=== PATIENT | female | born 1960 | race Caucasian/White ===

== ENCOUNTER 2016-12-11 06:11 | Inpatient (IN) | payer OTHER ==
[2016-12-11] VITALS (35 sets, daily range): BP systolic 94–147; BP diastolic 50–92; PULSE 66–97; RESP 16–23; Ht 165.1 cm; Wt 96.4 kg
[~2016-12-11] VITALS: Ht 165.1 cm; Wt 96.4 kg
[~2016-12-11 06:11] MED LIST: BUPIVACAINE 0.25% (MPF) 30 ML INJ INJ ONE; CLINDAMYCIN 600 MG/D5W (PMX) 50 ML IVPB ONE; POLYMYXIN/BACITRACIN 1L IRRIG IRR ONE; SOD CHLORIDE 0.9% 1,000 ML IV ONE
[2016-12-11] MEDS ORDERED: METH10TA5 PO (06:36)
[2016-12-11] MEDS ORDERED: LIDOCAINE 2% (SDV) 5 ML INJ ONE (07:34)
[2016-12-11] MEDS ORDERED: SUCCINYLCHOLINE CHLORIDE 100 MG/5 ML SYG IV ONE (07:34)
[2016-12-11] MEDS ORDERED: NEOSTIGMINE 3 MG/3 ML SYRINGE ONE ×2 (07:34→10:16)
[2016-12-11] MEDS ORDERED: GLYCOPYRROLATE 0.4 MG INJ ONE ×2 (07:34→10:11)
[2016-12-11] MEDS ORDERED: PROPOFOL 20 ML ONE (07:34)
[2016-12-11] MEDS ORDERED: MEPERIDINE 100 MG INJ ONE (07:34)
[2016-12-11] MEDS ORDERED: ROCURONIUM 50 MG INJ ONE ×2 (07:34→08:31)
--- NOTE | 2016-12-11 08:18 | RADRPT ---
PROCEDURE: XR Chest 1 View. CLINICAL INDICATION: Abnormal breath sounds, preop. TECHNIQUE: AP view of the chest were obtained. COMPARISON: None. FINDINGS: The heart size is within normal limits. Calcified atherosclerosis is noted in the aorta. Subsegment al atelectasis is noted at the lung bases. Osseous structures are intact. IMPRESSION: Calcified atherosclerosis in the aorta. Subsegmental atelectasis at the lung bases. RPTAT: AA .Conor Valenzuela MD, Date Time Electronically viewed and signed by .Conor Valenzuela MD, on 12/11/2016 08:18 .P/
[2016-12-11] MEDS ORDERED: LABETALOL HCL 20MG INJ IV PRN (09:30)
[2016-12-11] MEDS ORDERED: morphine (1 MG/ML) 10ML SYRINGE IV PRN ×2 (09:30)
[2016-12-11] MEDS ORDERED: ONDANSETRON 4 MG INJ IV PRN ×2 (09:30→17:00)
[2016-12-11] MEDS ORDERED: MEPERIDINE 25 MG INJ IV PRN (09:30)
[2016-12-11] MEDS ORDERED: FENTAnyl 50 MCG/ML VIAL IV PRN ×2 (09:30)
[2016-12-11] MEDS ORDERED: HYDROmorphONE (0.2 MG/ML) 10ML SYG IV PRN ×2 (09:30)
[2016-12-11] MEDS ORDERED: METOCLOPRAMIDE 10 MG INJ IV PRN (09:30)
[2016-12-11] MEDS ORDERED: DIPHENHYDRAMINE 50 MG INJ IV PRN (09:30)
[2016-12-11] MEDS ORDERED: MIDAZOLAM 1 MG/ML 2 ML INJ IV PRN (09:30)
[2016-12-11] MEDS ORDERED: EPHEDrine SULFATE 50 MG/5 ML SYG IV PRN (09:30)
[2016-12-11] MEDS ORDERED: hydrALAzine 20 MG INJ IV PRN (09:30)
[2016-12-11] MEDS ORDERED: ONDANSETRON 4 MG INJ ONE (10:11)
[2016-12-11] MEDS ORDERED: METOCLOPRAMIDE 10 MG INJ ONE (10:11)
--- NOTE | 2016-12-11 11:42 | OPR ---
DATE OF OPERATION: 12/11/2016 INDICATION: This is a 56-year-old female with a hiatal hernia and recalcitrant GERD, not amenable t o PPI therapy. Additionally, the patient does not want to take any more medications as symptom cont rol. She requests surgical repair. Risks, alternatives, benefits, and personnel were discussed wit h patient. Patient expressed understanding and consents to operation. PREOPERATIVE DIAGNOSES: 1. Hiatal hernia. 2. Recalcitrant GERD. POSTOPERATIVE DIAGNOSIS: 1. Hiatal hernia. 2. Recalcitrant GERD. OPERATION PERFORMED: 1. Laparoscopic Una fundoplication. 2. Laparoscopic hiatal hernia repair with a 6-layer ACell mesh. SURGEON: Max Davis MD SPECIMENS: None. COMPLICATIONS: None. ANESTHESIA: General. DESCRIPTION OF PROCEDURE: The patient was taken to the OR and prepped and draped in the usual steri le fashion. Surgical timeout was performed. IV antibiotics were given. Transverse incision is mad e over the left upper periumbilical region with a 15 blade, using a 10 mm optical trocar, optical en try was performed. Pneumoperitoneum was established. Right subcostal midclavicular 5 mm port was i nserted under direct visualization. Left midclavicular subcostal 12 mm port was inserted under dire ct visualization. Left upper flank 5 mm port was inserted under direct visualization. Midepigastri c transverse 5 mm incision was made. Placement of the snake liver retractor is performed with good liver retraction. Upon initial inspection, there was a hiatal hernia. The division of the pars flaccida was performed and the laparoscopic Harmonic dissection to the right crura was performed. The peritoneum of the r ight crura was divided and the esophagus and right crura are divided, the posterior plane is develop ed. Anteriorly, the peritoneum of the esophagus was also divided using laparoscopic Harmonic. The short gastrics were divided, thus mobilizing the fundus with laparoscopic Harmonic. The left crura was then identified. The peritoneum of the left crura was divided allowing mobilization of the esop hagus. A Davis is placed around the esophagus loosely and secured in place with a Vicryl Endoloop . A 46 bougie it is advanced into the stomach. A 3-0 silk was placed into the posterior fundus. The hiatal hernia was then repaired with interrupted #2 Ethibond in a posterior approach with laparo scopic techniques. The posterior fundus was retracted posteriorly to the esophagus and shoeshine ma neuver was performed and there was free mobilization of the fundus without any kind of tension or re traction. A 3-0 Prolene was used to secure the fundus to the esophagus in interrupted fashion with a posterior wrap. 1 cm above and below this initial Prolene, 3-0 silks were used to secure the wrap . This makes the wrap approximately 2 to 3 cm in length. There was good hemostasis. The bougie wa s removed. [place] was then removed. Anteriorly the 6-layer ACell was then secured in place with i nterrupted #2-0 Ethibond to the right and left crura to support the hernia repair. There was good hemostasis. The liver retractor was removed, ports removed under direct visualization. Skin was cl osed using skin jaylen. Local anesthesia was injected. Dry dressings were applied. Dictated By: MAX ROMAN/TIM Conf#: [id number] DID#: [id number]
[2016-12-11 11:48] LABS: ALBUMIN 3.3 g/dl (3.3-4.9)
[2016-12-11 11:49] LABS: BASOPHILS % 0.2 % (0.0-2.0); EOSINOPHILS % 0.4 % (0.0-7.0); HEMATOCRIT 39.6 % (37.0-47.0); HEMOGLOBIN 13.3 g/dl (12.0-16.0); LYMPHOCYTES # 2.6 10^3/ul (0.8-2.9); LYMPHOCYTES % 25.6 % (15.0-51.0); MEAN CORPUSCULAR HEMOGLOBIN 27.9 pg (29.0-33.0); MEAN CORPUSCULAR HGB CONC 33.5 g/dl (32.0-37.0); MEAN CORPUSCULAR VOLUME 83.3 fl (82.0-101.0); MEAN PLATELET VOLUME 8.9 fl (7.4-10.4); MONOCYTE # 0.3 10^3/ul (0.3-0.9); MONOCYTES % 2.7 % (0.0-11.0); NEUTROPHIL # 7.3 10^3/ul (1.6-7.5); NEUTROPHILS % 71.1 % (39.0-77.0); PLATELET COUNT 232 10^3/UL (140-440); RED BLOOD COUNT 4.75 10^6/ul (4.20-5.40); RED CELL DISTRIBUTION WIDTH 13.9 % (11.5-14.5); UNCORRECTED WBC 10.2 10^3/ul (4.8-10.8); WHITE BLOOD COUNT 10.2 10^3/ul (4.8-10.8)
[2016-12-11 11:50] LABS: POTASSIUM 4.4 mmol/L (3.5-5.1)
[2016-12-11 11:51] LABS: ALBUMIN/GLOBULIN RATIO 1.26; BILIRUBIN,INDIRECT 0.1 mg/dl (0-1.1); BILIRUBIN,TOTAL 0.1 mg/dl (0.2-1.3); TOTAL PROTEIN 5.9 g/dl (6.1-8.1)
[2016-12-11] MEDS: CLINDAMYCIN 600 MG/D5W (PMX) 50 ML IVPB SCH ×3 (12:00→23:19)
[2016-12-11 12:02] LABS: CREATININE 0.62 mg/dl (0.44-1.00)
[2016-12-11 12:03] LABS: CONDITION 1
[2016-12-11] MEDS: morphine 2 MG INJ IV PRN ×3 (12:57→21:51)
[2016-12-11] MEDS: LACTATED RINGER'S 1,000 ML IV SCH ×2 (12:57→21:51)
--- NOTE | 2016-12-11 14:58 | HP ---
DATE OF ADMISSION: 12/11/2016 HISTORY OF PRESENT ILLNESS: The patient is a 56-year-old female with history of hyperparathyroidism and chronic back pain. The patient was diagnosed with dyspepsia, hiatal hernia, and recurrent GERD , not responding to PPI therapy. The patient was evaluated by Dr. Davis in surgical consultation. Th e patient was brought to the hospital and underwent a laparoscopic Calvin fundoplication and laparos copic hiatal hernia repair. Post surgery, the patient experienced some significant postoperative pa in, and the patient is admitted for further evaluation and management. PAST MEDICAL HISTORY: Hyperthyroidism, the patient takes methimazole, and chronic back pain with hi story of steroid injections. Currently, patient is undergoing physical therapy. PAST SURGICAL HISTORY: The patient denies having any surgeries in the past. FAMILY HISTORY: Noncontributory. SOCIAL HISTORY: The patient lives at home. The patient denies any tobacco use. Denies any illicit drug use, denies any alcohol use. ALLERGIES: THE PATIENT IS ALLERGIC TO PENICILLIN ANTIBIOTICS. HOME MEDICATIONS: Methimazole 30 mg p.o. daily. REVIEW OF SYSTEMS: A 12-point review of systems is negative unless what is mentioned in the HPI. PHYSICAL EXAMINATION: GENERAL: Well-developed, obese female, currently is lethargic, but easily arousable, alert and orie nted x4. VITAL SIGNS: Temperature is 98.2, pulse is 68, blood pressure 123/80, respiratory rate 18, oxygen s aturation 96% on 2 L nasal. HEENT: Head is atraumatic, normocephalic. Pupils equal, round, reactive to light and accommodation . Oral mucosa is pink and moist. NECK: Supple, no cervical lymphadenopathy, no thyromegaly. CHEST: Lungs clear bilaterally. There is no rhonchi, wheezes, rales noted. CARDIOVASCULAR: Normal S1, S2. No murmurs, gallops, clicks, rubs noted. ABDOMEN: Protuberant, soft, nondistended. Patient is status post surgery with laparoscopic incisio ns intact. EXTREMITIES: No edema, clubbing, cyanosis. Pulses equal bilaterally 2+. SKIN: There is no rash, petechiae noted. NEUROLOGIC: Patient is awake, alert, and oriented x4. No focal deficits noted. Motor strength is 5/5 in all extremities. LABORATORY DATA: On admission, CBC: White blood cells 10.2, hemoglobin 13.3, hematocrit 39.6, plat elets 232. Chemistry: Sodium is 144, potassium 4.4, chloride 107, carbon dioxide 26, anion gap 15, BUN is 12, creatinine 0.62, glucose 160. AST is 117, ALT is 122, alkaline phosphatase is 87. IMAGING: Chest x-ray with calcified atherosclerosis in the aorta, subsegmental atelectasis at the l ton bases. ASSESSMENT AND PLAN: 1. Hiatal hernia and recurrent esophagitis. Status post laparoscopic Calvin fundoplication and hia marisa hernia repair by Dr. Davis. Continue morphine for pain and Zofran p.r.n. for nausea. We are dominic g to continue IV fluids, advance diet per surgical recommendations, continue incentive spirometer q. 1 hour while patient is awake. 2. Hyperthyroidism. Continue patient on methimazole. We will obtain CBC and CMP tomorrow. Contin ue sequential compression devices for deep venous thrombosis prophylaxis. Further recommendations based on clinical course. Plan of care discussed with Dr. Nuno. Dictated By: SHANI PARKER EXPANDER MACHINE OPERATOR for CHIKIS NUNO MD SR/NTS Conf#: [id number] DID#: [id number]
[2016-12-12 00:08] VITALS: BP 120/73; RESP 20
[2016-12-12] MEDS: morphine 2 MG INJ IV PRN (02:41)
[2016-12-12] MEDS: CLINDAMYCIN 600 MG/D5W (PMX) 50 ML IVPB SCH (05:15)
[2016-12-12] MEDS: LACTATED RINGER'S 1,000 ML IV SCH ×3 (05:16→17:57)
[2016-12-12 05:52] LABS: BASOPHILS % 0.3 % (0.0-2.0); EOSINOPHILS % 0.1 % (0.0-7.0); HEMATOCRIT 37.9 % (37.0-47.0); HEMOGLOBIN 12.9 g/dl (12.0-16.0); LYMPHOCYTES # 2.3 10^3/ul (0.8-2.9); LYMPHOCYTES % 24.5 % (15.0-51.0); MEAN CORPUSCULAR HEMOGLOBIN 28.1 pg (29.0-33.0); MEAN CORPUSCULAR VOLUME 82.8 fl (82.0-101.0); MEAN PLATELET VOLUME 9.3 fl (7.4-10.4); MONOCYTE # 0.6 10^3/ul (0.3-0.9); MONOCYTES % 6.2 % (0.0-11.0); NEUTROPHIL # 6.5 10^3/ul (1.6-7.5); NEUTROPHILS % 68.9 % (39.0-77.0); PLATELET COUNT 207 10^3/UL (140-440); RED BLOOD COUNT 4.58 10^6/ul (4.20-5.40); RED CELL DISTRIBUTION WIDTH 13.9 % (11.5-14.5); UNCORRECTED WBC 9.5 10^3/ul (4.8-10.8); WHITE BLOOD COUNT 9.5 10^3/ul (4.8-10.8)
[2016-12-12 05:56] LABS: ALBUMIN 3.2 g/dl (3.3-4.9)
[2016-12-12 05:57] LABS: POTASSIUM 4.1 mmol/L (3.5-5.1)
[2016-12-12 05:59] LABS: ALBUMIN/GLOBULIN RATIO 1.06; BILIRUBIN,INDIRECT 0.4 mg/dl (0-1.1); BILIRUBIN,TOTAL 0.4 mg/dl (0.2-1.3); CREATININE 0.52 mg/dl (0.44-1.00); TOTAL PROTEIN 6.2 g/dl (6.1-8.1)
[2016-12-12 06:00] LABS: CALCIUM 7.9 mg/dl (8.4-10.2)
[2016-12-12 06:56] LABS: CONDITION 1
[2016-12-12 08:29] VITALS: BP 121/74; RESP 18
[2016-12-12] MEDS: METHIMAZOLE 5 MG TAB PO SCH (09:00)
--- NOTE | 2016-12-12 13:27 | PN ---
Date/Time of Note Date/Time of Note DATE: 12/12/16 TIME: 13:25 Assessment/Plan VTE Prophylaxis VTE Prophylaxis Intervention: SCD's Lines/Catheters IV Catheter Type (from Nrsg): Peripheral IV Assessment/Plan Chief Complaint/Hosp Course ASSESSMENT AND PLAN: 1. Hiatal hernia and recurrent esophagitis. Status post laparoscopic Calvin fundoplication and hiatal hernia repair by Dr. Davis. Continue morphine for pain and Zofran p.r.n. for nausea. Advance diet per surgical recommendations, continue incentive spirometer q.1 hour while patient is awake. 2. Hyperthyroidism. Continue patient on methimazole. Continue sequential compression devices for deep venous thrombosis prophylaxis. Further recommendations based on clinical course. Plan of care discussed with Dr. Nuno. Problems: Subjective 24 Hr Interval Summary Free Text/Dictation Patient tolerates clear liquid diet well, pain is well controlled, complains of diaphragmatic pain. Exam/Review of Systems Vital Signs Vitals Vital Signs Date Time Temp Pulse Resp B/P Pulse Ox O2 Delivery O2 Flow Rate FiO2 12/12/16 08:29 98.3 101 18 121/74 93 12/11/16 18:00 Nasal Cannula 2.0 Intake and Output 12/11/16 12/11/16 12/12/16 15:00 23:00 07:00 Intake Total 400 ml 1200 ml Output Total 850 ml 1600 ml Balance -450 ml -400 ml Exam GENERAL: Well-developed, obese female, currently is lethargic, but easily arousable, alert and oriented x4. HEENT: Head is atraumatic, normocephalic. NECK: Supple, no cervical lymphadenopathy, no thyromegaly. CHEST: Lungs clear bilaterally. There is no rhonchi, wheezes, rales noted. CARDIOVASCULAR: Normal S1, S2. No murmurs, gallops, clicks, rubs noted. ABDOMEN: Protuberant, soft, nondistended. Patient is status post surgery with laparoscopic incisions intact. EXTREMITIES: No edema, clubbing, cyanosis. Pulses equal bilaterally 2+. SKIN: There is no rash, petechiae noted. NEUROLOGIC: Patient is awake, alert, and oriented x4. Results Result Diagram: 12/12/16 0420 12/12/16 0420 Results 24 hrs Laboratory Tests Test 12/12/16 04:20 Alanine Aminotransferase (ALT/SGPT) 378 H Albumin 3.2 L Albumin/Globulin Ratio 1.06 Alkaline Phosphatase 90 Anion Gap 12 Aspartate Amino Transf (AST/SGOT) 470 H Basophils # 0.0 Basophils % 0.3 Blood Morphology Comment Blood Urea Nitrogen 7 Calcium Level 7.9 L Carbon Dioxide Level 28 Chloride Level 103 Creatinine 0.52 Direct Bilirubin 0.00 Eosinophils # 0.0 Eosinophils % 0.1 Globulin 3.00 Glucose Level 103 # Hematocrit 37.9 Hemoglobin 12.9 Indirect Bilirubin 0.4 Lymphocytes # 2.3 Lymphocytes % 24.5 Mean Corpuscular Hemoglobin 28.1 L Mean Corpuscular Hemoglobin Concent 34.0 Mean Corpuscular Volume 82.8 Mean Platelet Volume 9.3 Monocytes # 0.6 Monocytes % 6.2 Neutrophils # 6.5 Neutrophils % 68.9 Nucleated Red Blood Cells # 0.0 Nucleated Red Blood Cells % 0.0 Platelet Count 207 Potassium Level 4.1 Red Blood Count 4.58 Red Cell Distribution Width 13.9 Sodium Level 139 Total Bilirubin 0.4 Total Protein 6.2 White Blood Count 9.5 Medications Medications Current Medications Morphine Sulfate 2 mg 2 mg Q2H PRN IV PAIN LEVEL 6-10 Last administered on 02:41; Admin Dose 2 MG; Start 12/11/16 at 11:00 Lactated Ringer's (Lr) 1,000 ml @ 100 mls/hr Q10H IV Last administered on 05:16; Admin Dose 100 MLS/HR; Start 12/11/16 at 10:38 Methimazole (Tapazole) 30 mg DAILY PO ; Start 12/12/16 at 09:00 Ondansetron HCl (Zofran Inj) 4 mg Q4H PRN IV NAUSEA AND/OR VOMITING; Start 12/11 at 17:00 SHANI PARKER Dec 12, 2016 13:27
[2016-12-12] MEDS ORDERED: HYDROCODONE/APAP (5/325) TAB NGT PRN (13:30)
[2016-12-12] MEDS ORDERED: HYDROCODONE/APAP (5/325) TAB PO PRN (13:30)
--- NOTE | 2016-12-12 17:22 | PN ---
Date/Time of Note Date/Time of Note DATE: 12/12/16 TIME: 17:21 Assessment/Plan VTE Prophylaxis VTE Prophylaxis Intervention: heparin, SCD's Lines/Catheters IV Catheter Type (from Nrs): Peripheral IV Urinary Cath still in place: No Assessment/Plan Chief Complaint/Hosp Course s/p lap bryson and lap hiatal hernia repair with mesh Problems: Assessment/Plan dc tomorrow Subjective 24 Hr Interval Summary Free Text/Dictation no issues, tolerating clears Exam/Review of Systems Vital Signs Vitals Vital Signs Date Time Temp Pulse Resp B/P Pulse Ox O2 Delivery O2 Flow Rate FiO2 12/12/16 08:29 98.3 101 18 121/74 93 12/11/16 18:00 Nasal Cannula 2.0 Intake and Output 12/11/16 12/11/16 12/12/16 14:59 22:59 06:59 Intake Total 400 ml 1200 ml Output Total 850 ml 1600 ml Balance -450 ml -400 ml Exam clean dry intact Results Result Diagram: 12/12/16 0420 12/12/16 0420 Results 24 hrs Laboratory Tests Test 12/12/16 04:20 Alanine Aminotransferase (ALT/SGPT) 378 H Albumin 3.2 L Albumin/Globulin Ratio 1.06 Alkaline Phosphatase 90 Anion Gap 12 Aspartate Amino Transf (AST/SGOT) 470 H Basophils # 0.0 Basophils % 0.3 Blood Morphology Comment Blood Urea Nitrogen 7 Calcium Level 7.9 L Carbon Dioxide Level 28 Chloride Level 103 Creatinine 0.52 Direct Bilirubin 0.00 Eosinophils # 0.0 Eosinophils % 0.1 Globulin 3.00 Glucose Level 103 # Hematocrit 37.9 Hemoglobin 12.9 Indirect Bilirubin 0.4 Lymphocytes # 2.3 Lymphocytes % 24.5 Mean Corpuscular Hemoglobin 28.1 L Mean Corpuscular Hemoglobin Concent 34.0 Mean Corpuscular Volume 82.8 Mean Platelet Volume 9.3 Monocytes # 0.6 Monocytes % 6.2 Neutrophils # 6.5 Neutrophils % 68.9 Nucleated Red Blood Cells # 0.0 Nucleated Red Blood Cells % 0.0 Platelet Count 207 Potassium Level 4.1 Red Blood Count 4.58 Red Cell Distribution Width 13.9 Sodium Level 139 Total Bilirubin 0.4 Total Protein 6.2 White Blood Count 9.5 Medications Medications Current Medications Morphine Sulfate 2 mg 2 mg Q2H PRN IV PAIN LEVEL 6-10 Last administered on t 02:41; Admin Dose 2 MG; Start 12/11/16 at 11:00 Lactated Ringer's (Lr) 1,000 ml @ 100 mls/hr Q10H IV Last administered on 05:16; Admin Dose 100 MLS/HR; Start 12/11/16 at 10:38 Methimazole (Tapazole) 30 mg DAILY PO ; Start 12/12/16 at 09:00 Ondansetron HCl (Zofran Inj) 4 mg Q4H PRN IV NAUSEA AND/OR VOMITING; Start 12/11 at 17:00 Acetaminophen/ Hydrocodone Bitart (Mobile (5/325)) 1 tab Q4H PRN PO PAIN LEVEL 1 -3; Start 12/12/16 at 13:30 Acetaminophen/ Hydrocodone Bitart (Mobile (5/325)) 2 tab Q4H PRN NGT PAIN LEVEL 4-7; Start 12/12/16 at 13:30 Jeremi JUAREZ Dec 12, 2016 17:22
[2016-12-12] MEDS ORDERED: ACETAMINOPHEN/CODEINE #3 TAB PO PRN (17:30)
[2016-12-12 19:24] VITALS: BP 139/79; RESP 20
[2016-12-13] MEDS: LACTATED RINGER'S 1,000 ML IV SCH ×3 (02:38→12:38)
[2016-12-13 08:24] VITALS: BP 119/68; RESP 18
[2016-12-13] MEDS: METHIMAZOLE 5 MG TAB PO SCH (08:37)
[2016-12-13] MEDS ORDERED: ACET1TAB40 PO (14:32)
--- NOTE | 2016-12-17 20:52 | DS ---
DATE OF ADMISSION: 12/11/2016 DATE OF DISCHARGE: 12/13/2016 FINAL DIAGNOSES: 1. Hiatal hernia and recurrent esophagitis status post laparoscopic Una fundoplication and hiata l hernia repair. 2. Hyperthyroidism. 3. Obesity. BRIEF HISTORY: The patient is a 56-year-old female with history of hyperthyroidism and chronic back pain and obesity. The patient was diagnosed with dyspnea, hiatal hernia, and recurrent GERD, not r esponding to PPI therapy. Patient was evaluated by Dr. Davis in surgical consultation. The patient w as brought to the hospital and underwent a laparoscopic Una fundoplication and laparoscopic herni a repair. Postoperatively, the patient experienced significant pain and was admitted for further ev aluation and management. HOSPITAL COURSE: The patient was given Roxana and morphine p.r.n. for pain. The patient was also co ntinued on Tapazole for hyperthyroidism. The patient was given Roxana p.r.n. for nausea. Patient st arted on clear liquid diet, which was advanced gradually to regular diet. The patient's condition i mproved. The patient was able to tolerate diet and bowel movement and the patient is discharged nickie e. CONDITION ON DISCHARGE: Hemodynamically stable. ACTIVITY: As patient tolerates with no lifting more than 25 pounds for 6 to 8 weeks. DISCHARGE MEDICATIONS: The patient is given prescription of Tylenol No. 3 p.r.n. for pain and patie nt is continued on her home medication of methimazole. The patient is instructed to follow up with Dr. Davis in postoperative appointment in 2 weeks. Interdisciplinary plan of care was established for this patient. Plan of care was discussed with Dr Ghazal Nuno. Dictated By: SHANI PARKER PEANUT BLANCHER for CHIKIS NUNO MD SR/NTS Conf#: [id number] DID#: [id number]
== END 2016-12-13 16:15 | disposition home or self-care (01) | DRG 328 ==
LOC: REC 06:11 → MS1 12:38
PROVIDERS: ADMIT Internal Medicine; ATTEND Surgery
PROC: 0BUS4JZ (ICD-10-PCS; 2016-12-11)
PROC: 0DV44ZZ Restriction of Esophagogastric Junction, Percutaneous Endoscopic Approach (ICD-10-PCS; principal; 2016-12-11 07:30)
PROC: 0BUR4JZ (ICD-10-PCS; 2016-12-11 07:30)
DX: K21.0 Gastro-esophageal reflux disease with esophagitis (principal); K44.9 Diaphragmatic hernia without obstruction or gangrene; E05.90 Thyrotoxicosis, unspecified without thyrotoxic crisis or storm; M54.9 Dorsalgia, unspecified; G89.29 Other chronic pain
CPT/HCPCS: 71010; 80053; 85025; 87086; J0330; J1170; J2175; J2270; J2405; J2710; J2765; J7030; J7120; Q4166